=== PATIENT | male | born 1950 | race Caucasian/White ===

== ENCOUNTER 2017-09-14 10:37 | Day surgery (SDC) | payer BC ==
[~2017-09-14] VITALS: Ht 188 cm; Wt 99.2 kg
[2017-09-14] MEDS ORDERED: IOHEXOL 350 MG/ML 100 ML BTL (for Cath Lab) OTHER ONE (10:38)
[2017-09-14] MEDS ORDERED: NS 1000P @30 MLS/HR (KVO) IV SCH (10:47)
[2017-09-14 11:04] VITALS: BP 152/75; PULSE 56; RESP 18; TEMP 98.5; O2SAT 94
[2017-09-14] MEDS ORDERED: ISOS30TA3 PO (11:11)
[2017-09-14] MEDS ORDERED: ASPI81CH6 CHEW (11:11)
[2017-09-14] MEDS ORDERED: ATOR40TA16 PO (11:11)
[2017-09-14] MEDS ORDERED: FINA5TAB2 PO (11:11)
[2017-09-14] MEDS ORDERED: TEST200I12 IM (11:11)
[2017-09-14] MEDS ORDERED: METO1TAB42 PO (11:11)
[2017-09-14 11:27] LABS: AUTOMATED NEUTROPHIL # 4.3 TH/MM3 (1.8-7.7); BASOPHIL # 0.1 TH/MM3 (0-0.2); BASOPHIL % 0.7 % (0.0-2.0); EOSINOPHIL # 0.2 TH/MM3 (0-0.4); EOSINOPHIL % 2.9 % (0.0-4.0); HEMATOCRIT 45.8 % (39.0-51.0); HEMOGLOBIN 15.9 GM/DL (13.0-17.0); LYMPH % 31.7 % (9.0-44.0); LYMPHOCYTE # 2.4 TH/MM3 (1.0-4.8); MEAN CELL VOLUME 94.8 FL (80.0-100.0); MEAN CORPUSCULAR HEMOGLOBIN 32.9 PG (27.0-34.0); MEAN CORPUSCULAR HGB CONC 34.7 % (32.0-36.0); MEAN PLATELET VOLUME 8.3 FL (7.0-11.0); MONO % 9.2 % (0.0-8.0); MONOCYTE # 0.7 TH/MM3 (0-0.9); NEUT % 55.5 % (16.0-70.0); PLATELET COUNT 205 TH/MM3 (150-450); RED BLOOD COUNT 4.83 MIL/MM3 (4.50-5.90); RED CELL DISTRIBUTION WIDTH 12.5 % (11.6-17.2); WHITE BLOOD COUNT 7.7 TH/MM3 (4.0-11.0)
[2017-09-14 11:36] LABS: PROTHROMBIN TIME - PATIENT 10.3 SEC (9.8-11.6)
[2017-09-14 11:48] LABS: BICARBONATE 27.9 MEQ/L (21.0-32.0); CALCIUM 8.9 MG/DL (8.5-10.1); CREATININE 1.02 MG/DL (0.60-1.30)
[2017-09-14] MEDS ORDERED: MIDAZOLAM HCL 2 MG/2 ML VIAL ONE ×2 (13:38→14:19)
[2017-09-14] MEDS ORDERED: HEPARIN-NS/PF INJ 1,000 ML ONE (13:38)
--- NOTE | 2017-09-14 14:51 | CATHPROC ---
[facility]Stage HIS Report Study Information Study Number Admission Scheduled Start Study Start [id number] Sep 14 2017 10:37AM 09/14/2017 Sep 14 2017 1:33PM [place] [facility] Catheterization Admit Source Facility Department Other [facility] Physician and Clinical Staff Initial Ernestina Perrin Eye Dropper Assembler Jil Kendall BSN Other cathlab, cathlab Recorder Papito Meredith,CASEWORKER INTAKE(BS) Recorder Tata Mtz ,RT(R) Scrub Cherelle Sampson RCIS TECH2 Procedures Performed Procedure Location (Site) Vessel Name Angiogram LV LV Ventricle Coronary Angiograms LCA Left Coronary Coronary Angiograms RCA Right Coronary L Heart Cath Equipment Time English Language Arts Teacher Description Size Mfg Part Number Used/Scraped TRANSDUCER, TRMAUREENAVE [id number] 14:21 Life[employer]ield Security * Used W/STOCKCOCK *[id number] 14:40 Rapid Mobile VASCADE, FR5 CLOSURE SYSTEM FR 5 Used *[id number] *[id number] 14:21 [employer] INDUSTRIES PACK, CCL CUSTOM * Used *[id number] 14:21 [employer] PACER PEN, SKIN DUAL W/ RULER * Used *[id number] 13:58 BUILD[employer] JL 4.0 DXTERITY CATHETER FR 5 Used *[id number] 13:58 [employer] PIGTAIL ANG. CATHETER FR 5 Used *[id number] 14:21 [employer] WIRE, 3MMJ .035 180CM 180CM Used *[id number] PROBE COVER, STERILE [id number] 14:21 Daily [employer] MEDICAL * Used ULTRASOUND W/ GEL *[id number] 14:21 NAMIC MANIFOLD, 4 PORT * Used *[id number] [id number] 14:21 NAMIC TUBING, HIGH PRESSURE 48" 48" Used *[id number] 14:21 [employer]COMED OMNIPAQUE, 350 MG, 150ML 150ML [id number] Used 13:56 NYCOMED OMNIPAQUE, 350 MG, 50ML 50ML [id number] Used [id number] 14:21 [employer] MEDICAL BLANKET,WARM AIR CCL * Used *[id number] 14:21 TERUMO MEDICAL SHEATH, FR5 TERUMO (10CM) FR 5 Used *[id number] Equipment Model, Serial, Lot Number and Expiration Data Description Model Number Serial Number Lot Number Expiration Date JL 4.0 DXTERITY CATHETER [id number] 04-07-2020 History: Current Medications Medication Dosage/Unit Route Frequency Last Date/Time Taken Statins (any) Beta Hang ASA History: Allergies Allergy Reaction NKDA History: Risk Factors Family History of Hypertension Dyslipidemia Previous VA Previous Heart Failure Premature CAD Yes Yes Yes No No Prior Valve Prior PCI Prior CABG Surgery No No No Cerebrovascular Peripheral Artery Chronic Lung On Dialysis Diabetes Disease Disease Disease No No No No No History: Symptoms/Diagnosis Selection Items Chest pain History: Stress Tests Stress or Imaging Studies Performed Yes Standard Exercise Stress Test No Stress Echo No Stress Test SPECT Stress Test SPECT Result Stress Test SPECT Ischemia Risk/Extent Yes Positive Intermediate Stress Test CMR No Cardiac CTA Coronary Calcium Score No No History: Other Disease Selection Items HTN History: Other Current Smoker Method Quit Packs a Day Years Used Pack Years No Cigarettes 45 Years Ago 1 1 1 Labs Hgb (g/dl) Hct (%) WBC (l/cumm) Platelets (thousands) 11.60-17.00 35.00-51.00 4.00-11.00 150.00-450.00 15.9 45.8 7.7 205 Glucose (mg/dl) BUN (mg/dl) Creatinine (mg/dl) BUN:Creatinine (1:x) 74.00-106.00 7.00-18.00 0.50-1.30 10.00-20.00 98 20 1.0 20 Na (meq/l) K (meq/l) 136.00-145.00 3.50-5.10 139 4.1 INR (PTT:PT) 0.90-1.10 1 CPK-MB (ng/ML) 0.50-3.60 Not Drawn Medication Medication Total Dose (Bolus/Oral) Medication Total Dosage/Unit 1% XYLOCAINE 20 mL FENTANYL 100 mcg VERSED 4 mg Medications (Bolus/Oral) Medication Time Given Dosage/Unit Administered By Reason VERSED 09/14/2017 2:17:02 PM 2 mg Jil Kendall 2 mg VERSED given in lab by Jil Kendall BSN in Left Antecubital via Peripheral IV. Ordered Ernestina Monroe. FENTANYL 09/14/2017 2:18:23 PM 50 mcg Jil Kendall 50 mcg FENTANYL given in lab by Jil Kendall BSN in Left Antecubital via Peripheral IV. Order ed by Ernestina Taylor. VERSED 09/14/2017 2:20:00 PM 1 mg Faiza Jil 1 mg VERSED given in lab by Jil Kendall BSN in Left Antecubital via Peripheral IV. FENTANYL 09/14/2017 2:21:00 PM 25 mcg Jil Kendall 25 mcg FENTANYL given in lab by Jil Kendall BSN in Left Antecubital via Peripheral IV. Order ed by Ernestina Taylor. VERSED 09/14/2017 2:22:00 PM 1 mg Jil Kendall 1 mg VERSED given in lab by Jil Kendall BSN in Left Antecubital via Peripheral IV. FENTANYL 09/14/2017 2:23:00 PM 25 mcg Jil Kendall 25 mcg FENTANYL given in lab by Jil Kendall BSN in Left Antecubital via Peripheral IV. Order ed by Ernestina Taylor. 1% XYLOCAINE 09/14/2017 2:23:26 PM 20 mL Ernestina Taylor 20 mL 1% XYLOCAINE given in lab by Ernestina Taylor in Right Groin via Subcutaneous. Medication (Drip) Medication Time Given Dosage/Unit Concentration/Unit Diluent (ml) Solutio n IV Solutions 09/14/2017 1:39:24 PM 0 mL (IV) 500 NaCl .9 Patient arrived on IV Solutions given by magdalena nichols in Left Antecubital via Peripheral IV. Pump /Drip Flow = 20 ml/hr using NaCl .9. Ordered by Ernestina Taylor. Initial Case Assessment Cardiovascular HR Rhythm NIBP Chest Pain 62 nsr 148/77 0 Edema Present Skin color Skin None Normal Warm Dry Circulatory - Right Pulses Dorsalis Pedis Femoral 1 3 Scale (0,1,2,3,4,d) Circulatory - Left Pulses Dorsalis Pedis Femoral 2 2 Scale (0,1,2,3,4,d) Neurological State Oriented to time-place- Alert Moves all extremities person Respiration - General Respiration Rate SpO2 (%) (B/min) 15 97 Final Case Assessment Cardiovascular HR Rhythm NIBP Chest Pain 74 nsr 129/78 0 Edema Present Skin color Skin None Normal Warm Dry Circulatory - Right Pulses Dorsalis Pedis Femoral 1 3 Scale (0,1,2,3,4,d) Circulatory - Left Pulses Dorsalis Pedis Femoral 2 2 Scale (0,1,2,3,4,d) Neurological State Oriented to time-place- Alert Moves all extremities person Respiration - General Respiration Rate SpO2 (%) (B/min) 15 92 Chronological Log Time Study Chronological Log 13:33:25 Patient arrived via Bed. 13:33:26 Patient Name, D.O.B, / Armband Verified By R.N. 13:33:27 Consent signed by the physician and the patient and verified by the [facility] staff. 13:39:11 Pre-op and post- op instructions given; patient acknowledges understanding of instructions. 13:39:11 Verbal Stimulation=2 Physical Stimulation=2 Airway=2 Respiration=2 TOTAL=8. (0=absent, 1=li mited, 2=present) 13:39:13 Presedation assessment performed by [facility] RN. 13:39:14 Immediate Presedation assesment performed by physician. 13:39:14 Patient has been NPO for More than 6Hrs. 13:39:15 Skin Breakdown- none per patient 13:39:16 Patient Warmer Placed on the Table. 13:39:24 A # 20 IV was noted in the Antecubital (left). Grade = 0 Patient arrived on IV Solutions given by cathlabmagdalena in Left Antecubital via Peripheral IV . Pump/Drip Flow = 20 13:39:24 ml/hr using NaCl .9. Ordered by Ernestina Taylor. 13:39:25 History and physical on the chart or being dictated. Vitals capture started with the following parameters, Patient=Adult, Interval=5 min, Initial Pr sggwpo=335 mmHg, 13:39:47 Deflation Rate=5 mmHg, Cuff placed on Left Arm 13:40:28 HR=62 bpm, DXAF=381/77 mmhg, SpO2=97.0 %, Resp=15 B/min, Pain=0, James=10, Rincon=2 Assessment: Initial Case, HR=62 BPM, Rhythm=nsr, TEAQ=542/77 mmhg, Chest Pain=0, Edema=None, Co conrado=Normal, Skin = Warm, Dry Right Pulses: Osman Ped=1, Femoral=3 13:40:28 Left Pulses: Osman Ped=2, Femoral=2 Neurological: State=Alert, Ox3, [place] Respiration: Resp=15 B/min, SpO2=97 % 13:40:52 Reference ECG taken 13:45:29 HR=65 bpm, ZMZW=790/72 mmhg, SpO2=98.0 %, Resp=16 B/min, Pain=0, James=10, Rincon=2 13:47:06 Bilateral groins prepped with 2% chlorhexidine, and draped after a 3 minute waiting time. 13:50:26 HR=62 bpm, AZTP=955/74 mmhg, SpO2=98.0 %, Resp=16 B/min, Pain=0, James=10, Rincon=2 13:54:08 Pressure channel 1 zeroed. 13:55:29 HR=60 bpm, TKSV=318/78 mmhg, SpO2=98.0 %, Resp=21 B/min 14:00:26 HR=58 bpm, KIIX=511/75 mmhg, SpO2=98.0 %, Resp=21 B/min 14:01:05 paged 14:05:29 HR=60 bpm, AYCR=539/73 mmhg, SpO2=98.0 %, Resp=15 B/min, Pain=0, James=10, Rincon=2 14:10:26 HR=61 bpm, GENE=822/79 mmhg, SpO2=99.0 %, Resp=16 B/min, Pain=0, James=10, Rincon=2 14:15:25 HR=66 bpm, OTFL=924/88 mmhg, SpO2=98.0 %, Resp=14 B/min, Pain=0, James=10, Irncon=2 2 mg VERSED given in lab by Jil Kendall BSN in Left Antecubital via Peripheral IV. Ord ered by Brandon, 14:17:02 Ernestina. 14:17:21 arrived. 14:17:51 Contrast Scanned 14:17:52 Immediate Presedation assesment performed by physician. 50 mcg FENTANYL given in lab by Jil Kendall BSN in Left Antecubital via Peripheral IV. Ordered by Brandon, 14:18: Ernestina. 14:20:00 1 mg VERSED given in lab by Jil Kendall BSN in Left Antecubital via Peripheral IV. 14:20:30 HR=74 bpm, WAGT=752/81 mmhg, SpO2=96.0 %, Resp=15 B/min, Pain=0, James=10, Rincon=2 25 mcg FENTANYL given in lab by Jil Kendall BSN in Left Antecubital via Peripheral IV. Ordered by Brandon, : Ernestina. 14::00 1 mg VERSED given in lab by Jil Kendall BSN in Left Antecubital via Peripheral IV. Time Out. Correct patient, correct procedure, correct physician, power injector loaded with con trast with surgical team 14::52 present. Time Out Concurred by MD and individual staff in procedure. 25 mcg FENTANYL given in lab by Jil Kendall BSN in Left Antecubital via Peripheral IV. Ordered by Brandon, :: Ernestina. 14:: Case Start 14::07 Verbal Stimulation=2 Physical Stimulation=2 Airway=2 Respiration=2 TOTAL=8. (0=absent, 1=li mited, 2=present) 14::26 20 mL 1% XYLOCAINE given in lab by Ernestina Taylor in Right Groin via Subcutaneous. 14:25:27 HR=65 bpm, CWCC=329/74 mmhg, SpO2=91.0 %, Resp=16 B/min, Pain=0, James=10, Rincon=2 14:25:45 Access site was Right Femoral Artery. 14:25:57 A SHEATH, FR5 TERUMO (10CM) FR 5 was advanced into the Fem Art (right) using the Percutaneo us technique. 14:26:10 A PIGTAIL ANG. CATHETER FR 5 was advanced over a wire. OMNIPAQUE, 350 MG, 50ML 50ML was use d for injections. Recorded Pressure: LV, HR=54, Condition=Condition 1 14:28:30 (Left Ventricle) LV 118/2/6 14:28:40 The LV was injected at 10 cc/sec for a total of 30. OMNIPAQUE, 350 MG, 50ML 50ML used. Recorded Pressure: LV, Ao, HR=66, Condition=Condition 1 14:30:18 (Left Ventricle) LV 115/-4/7, (Aorta) Ao 116/52/82 14:30:28 HR=67 bpm, PJHB=267/76 mmhg, SpO2=95.0 %, Resp=15 B/min, Pain=0, James=10, Rincon=2 14:30:43 Catheter was removed A JL 4.0 DXTERITY CATHETER FR 5 was advanced over a wire. OMNIPAQUE, 350 MG, 150ML 150ML was us ed for 14:30:44 injections. 14:33:29 The LCA was injected and visualized at various angles. OMNIPAQUE, 350 MG, 150ML 150ML used . Recorded Pressure: Ao, HR=55, Condition=Condition 1 14:33:48 (Aorta) Ao 107/52/74 14:33:57 Catheter was removed A AR MOD INFINITI CATHETER FR 5 was advanced over a wire. OMNIPAQUE, 350 MG, 150ML 150ML was us ed for 14:34:01 injections. 14:35:27 HR=70 bpm, RYVN=601/76 mmhg, SpO2=95.0 %, Resp=16 B/min, Pain=0, James=10, Rincon=2 14:35:35 The RCA was injected and visualized at various angles. OMNIPAQUE, 350 MG, 50ML 50ML used. 14:36:07 Catheter was removed 14:36:44 Cine recording checked. 14:40:00 VASCADE, FR5 CLOSURE SYSTEM FR 5 placement in the Fem Art (right) 14:40:28 HR=73 bpm, NVCP=075/75 mmhg, SpO2=97.0 %, Resp=16 B/min, Pain=0, James=10, Rincon=2 14:43:45 Case End 14:45:27 HR=72 bpm, XSVO=335/78 mmhg, SpO2=16 %, Resp=21 B/min, Pain=0, James=10, Rincon=2 Assessment: Final Case, HR=74 BPM, Rhythm=nsr, KSFA=150/78 mmhg, Chest Pain=0, Edema=None, [place] r=Normal, Skin = Warm, Dry Right Pulses: Osman Ped=1, Femoral=3 14:46:14 Left Pulses: Osman Ped=2, Femoral=2 Neurological: State=Alert, Ox3, [place] Respiration: Resp=15 B/min, SpO2=92 % 14:46:30 Sterile dressing applied to site 14:46:31 No case complications noted. 14:46:32 Cine recording checked. 14:46:35 Bedside Report will be given. 14:46:39 Contrast Scanned 14:46:46 A Left Heart Cath was performed. 14:50:26 HR=76 bpm, RSWS=805/82 mmhg, SpO2=95 %, Resp=17 B/min, Pain=0, James=10, Rincon=2 14:50:34 Vitals capture stopped. 14:50:37 Patient moved to stretcher End Study - Contrast Media Used In Study Contrast Total Opened (mL) Total Used (mL) Total Wasted (mL) Omnipaque 90 90 0 End Study - Maximum Contrast Load Max Contrast Load (mL) 495.9 End Study - Radiation Exposure Fluoro Time (minutes) 1.4 End Study - Patient Disposition Complications Transferred To Interventional Outcome No [facility] No attempt made
--- NOTE | 2017-09-14 16:35 | EKG ---
Date Performed: 09/14/2017 Time Performed: 11:11:08 PTAGE: 67 years EKG: Sinus bradycardia. Normal ECG except for rate NO PREVIOUS TRACING DOCTOR: Ernestina Taylor Interpretating Date/Time 09/14/2017 16:34:16
--- NOTE | 2017-09-14 19:32 | MA ---
cc: POLA CAMPOS MD DATE: 09/14/2017 INDICATION Angina pectoris, class II. The patient is on two anti-anginal medications. Intermediate probability nuclear myocardial perfusion study. PROCEDURE PERFORMED 1. Retrograde left heart catheterization with left ventriculography and selective coronary angiography. 2. Moderate sedation. ACCESS SITE Right femoral artery. EQUIPMENT USED 5-Bruneian pigtail catheter, 5 Bruneian JL-4 and AR modified coronary catheters. MEDICATIONS Versed IV. Fentanyl IV. CONTRAST Omnipaque 90 cc COMPLICATIONS None BLOOD LOSS Less than 10 cc. METHOD OF HEMOSTASIS Vascade closure. RESULTS HEMODYNAMICS Heart rate 70 beats per minute. Left ventricular end-diastolic pressure 4 mmHg. Left ventricle 110/4. Aorta 110/52/74. Left ventricular ejection fraction 65%. Wall motion normal. No mitral regurgitation. CORONARY ANGIOGRAPHY The main coronary artery, patent. D1 patent. Left circumflex artery, patent. OM1 patent. OM2 patent. Right coronary artery, patent. PDA patent. PLV patent. DIAGNOSIS 1. Patent coronary arteries. 2. Preserved left ventricular systolic function. DISPOSITION Mr. Hammond can be reassured about his cardiac status. His study showed widely patent coronary arteries and preserved left ventricular systolic function. He will be discharged home later today. I will see him back for followup in our office after discharge. MD ROJELIO Lyon/PATRICIA /2:31 PM /8:01 AM LESTER
== END 2017-09-14 18:00 | disposition home or self-care (01) ==
LOC: HDIC 10:37 → HDOC 10:37
PROVIDERS: ATTEND Internal Medicine Interventional Cardiology
DX: I20.9 Angina pectoris, unspecified (principal); R94.39 Abnormal result of other cardiovascular function study; E78.5 Hyperlipidemia, unspecified; Z79.82 Long term (current) use of aspirin
CPT/HCPCS: 80048; 85025; 85610; 85730; 93005; 93458; 99152; 99153; C1760; C1769; C1893; G0269; J1644; J2250; J3010; Q9967